=== PATIENT | male | born 1995 ===

== ENCOUNTER 2022-10-10 20:39 | Emergency (ER) | payer SELFPAY ==
--- NOTE | 2022-10-10 20:49 | CRLHL7_ITS ---
For Patients: As a result of the Century Cures Act, medical imaging exams and procedure reports are released immediately into your electronic medical record. You may view this report before your referring provider. If you have questions, please contact your health care provider. DATE: 10/10/2022. CLINICAL HISTORY: Head straight. TECHNIQUE: Standard helical CT image acquisition of the brain was performed. COMPARISON: None available. FINDINGS: There is no intracranial hemorrhage. No extra-axial collection, mass effect, or midline shift. Page-white matter differentiation is preserved. The ventricles are normal in size and morphology for patient age. Incidental note is made of a eloise cisterna magna. No displaced calvarial fracture. The orbits are unremarkable. The paranasal sinuses are unremarkable. The mastoid air cells are unremarkable. The soft tissues are unremarkable. IMPRESSION: No CT evidence of acute intracranial abnormality or closed-head injury. Please note that all CT scans at this facility use dose modulation, iterative reconstruction, and/or weight-based dosing when appropriate to reduce radiation dose to as low as reasonably achievable. Dictated by Rowdy Marquez MD @ 10/10/2022 9:17:46 PM (Electronically Signed)
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
[2022-10-10 20:56] VITALS: BP 154/91; PULSE 84; RESP 18; TEMP 36.8; O2SAT 99; BMI 23.8
[2022-10-10 21:26] LABS: Basophils Absolute Auto 0.02 K/uL (0.00-0.30); Basophils Percent Auto 0.3 % (0.0-3.0); Eosinophils Absolute Auto 0.15 K/uL (0.00-0.50); Eosinophils Percent Auto 2.3 % (0.0-7.0); Hematocrit 42.8 % (37.0-53.0); Lymphocytes Absolute Auto 1.29 K/uL (0.90-2.90); Lymphocytes Percent Auto 20.1 % (20-44); Mean Corpuscular HGB Conc 33 gm/dL (32-36); Mean Corpuscular Hemoglobin 27 pg (26-34); Mean Corpuscular Volume 83 fL (80-100); Monocytes Percent Auto 5.8 % (0.0-11.0); Neutrophils Percent Auto 71.5 % (42.0-72.0); Platelet Count* 182 K/uL (140-440); RDW Coefficient of Variation % 12.7 % (11.5-15.5); Red Blood Count 5.16 m/uL (4.30-5.90); White Blood Count* 6.43 K/uL (4.50-11.00)
[2022-10-10 21:36] LABS: Slide Review Reflex No
[2022-10-10 21:40] LABS: Chloride* 104 mmol/L (96-114); Potassium* 3.7 mmol/L (3.6-5.1); Sodium* 138 mmol/L (135-149)
[2022-10-10 21:43] LABS: Carbon Dioxide* 27 mmol/L (20-32); Creatinine* 0.7 mg/dL (0.5-1.5); Est. Creatinine Clearance* 168.83; Estimated Glomerular Filt Rate 130 ml/min
[2022-10-10 21:44] LABS: Blood Urea Nitrogen* 16 mg/dL (5-24); Glucose* 126 mg/dL (60-115)
[2022-10-10] MEDS: TETANUS/DIPHTH/PERTUSSIS 0.5 ML SYRINGE IM (21:56)
[2022-10-10 22:00] LABS: Ethanol* < 0.01 % (0.01-0.03)
== END 2022-10-10 22:32 | disposition home or self-care (01) ==
PROVIDERS: Emergency Provider Internal Medicine
DX: S06.0X0A Concussion without loss of consciousness, initial encounter (principal); W22.09XA Striking against other stationary object, initial encounter
CPT/HCPCS: 36415; 70450; 72125; 80048; 82077; 85025; 90715; 93005; 99283; 99285; 99291; G0390